=== PATIENT | male | born 1965 | race Caucasian/White ===

== ENCOUNTER 2025-02-03 11:25 | Outpatient (CLI) | payer BC, SELFPAY ==
--- NOTE | 2025-02-03 | DI.RAD_ITS ---
Exam(s) XR KNEE RT 3V AP,LAT,MELISSA EXAM: XR KNEE RT 3V AP,LAT,MELISSA CLINICAL HISTORY: Rt knee pain, M25.561. TECHNIQUE: 2D digital imaging was performed. Three views. COMPARISON: No exams were available for comparison FINDINGS: The exam is limited by overlying material. BONES: No acute fracture is present. No bony destructive lesion is seen. JOINTS: There degenerative changes of the lateral femoral tibial joint, with moderate joint space narrowing and periarticular spurring. A small joint effusion is seen. SOFT TISSUE: chronic appearing calcification adjacent to lateral femoral condyle. IMPRESSION: No acute abnormality. DATA REPOSITORY: RADIATION DOSE DELIVERED:
== END 2025-02-03 11:45 ==
LOC: DI 11:28
PROVIDERS: Visit Provider Physician Assistant Medical
DX: M25.561 Pain in right knee (principal)
CPT/HCPCS: 73562